=== PATIENT | female | born 1990 | race Caucasian/White ===

== ENCOUNTER 2018-01-10 15:27 | Inpatient (IN) | payer OTHER ==
[~2018-01-10] VITALS: Ht 170.2 cm; Wt 112.0 kg
[2018-01-10] MEDS ORDERED: LR 1,000 ML IV ONE (16:39)
[2018-01-10] MEDS ORDERED: CITRIC ACID/SODIUM CITRATE 30 ML UDC PO ONE (16:45)
[2018-01-10] MEDS ORDERED: METOCLOPRAMIDE HCL 10 MG/2 ML VIAL IVP ONE (16:45)
[2018-01-10] MEDS ORDERED: CEFAZOLIN 1 GM IVPB PREMIX 50 ML IV ONE (16:45)
[2018-01-10 17:04] LABS: HEMOGLOBIN 12.7 g/dL (12.0-16.0); MEAN CORPUSCULAR HEMOGLOBIN 28 pg (27-31); MEAN CORPUSCULAR HGB CONC 33 % (32-36); MEAN CORPUSCULAR VOLUME 84 fL (79.0-98.0); PLATELET COUNT (AUTO) 157 K/uL (130-430); RED BLOOD CELL COUNT(AUTO) 4.51 MIL/uL (4.2-6.2); RED CELL DISTRIBUTION WIDTH 13.7 % (9.0-15.0); WHITE BLOOD COUNT (AUTO) 10.3 K/uL (4.8-10.8)
[2018-01-10 17:11] LABS: BILIRUBIN,URINE NEGATIVE (NEGATIVE); BLOOD, URINE TRACE (NEGATIVE); CLARITY/URINE CLOUDY (CLEAR); COLOR,URINE YELLOW (YELLOW); GLUCOSE,URINE NEGATIVE (NEGATIVE); KETONES,URINE TRACE (NEGATIVE); LEUKOCYTE ESTERASE ,URINE NEGATIVE (NEGATIVE); NITRITE, URINE NEGATIVE (NEGATIVE); PROTEIN URINE 2+ (NEGATIVE); UROBILINOGEN,URINE 0.2 (0.2-1.0)
[2018-01-10 17:14] LABS: BACTERIA,URINE MODERATE /HPF (None Seen); RBC,URINE 0-3 /HPF (0-3); WBC,URINE 50-80 /HPF (0-3)
[2018-01-10 17:15] LABS: MUCUS,URINE 1+ /LPF (None Seen)
[2018-01-10 18:06] LABS: ATYPICAL LYMPHOCYTES % 0 % (0-0); BAND % (MANUAL) 0 % (0-6); BASOPHILS % (MANUAL) 0 % (0-2); EOSINOPHILS % (MANUAL) 1 % (0-7); LYMPHOCYTES % (MANUAL) 32 % (20-46); MONOCYTES % (MANUAL) 2 % (0-11)
[2018-01-10] MEDS ORDERED: OXYTOCIN/NORMAL SALINE 1,000 ML IV ONE (18:14)
[2018-01-10] MEDS ORDERED: BISACODYL 10 MG/SUPPOSITORY RC PRN (18:15)
[2018-01-10] MEDS ORDERED: LANOLIN 7 GM OINT. TP PRN (18:15)
[2018-01-10] MEDS ORDERED: HYDROcodone/ACETAMIN 5-325 MG TAB (NORCO/ VICODIN) PO PRN (18:15)
[2018-01-10] MEDS ORDERED: RHO(D) IMMUNE GLOBULIN/MALTOSE 1500 UNITS/1.3 ML (WINHRO) IM PRN (18:15)
[2018-01-10] MEDS ORDERED: DIPH-TET-PERTUS Vaccine 0.5 ML VIAL (ADACEL) I.M. PRN (18:15)
[2018-01-10] MEDS ORDERED: MEASLES,MUMPS&RUBELLA VACC/PF 12500 UNIT/0.5 ML VIAL SUBQ PRN (18:15)
[2018-01-10] MEDS ORDERED: ANUSOL 1 EA SUPP.RECT (PREPARATION H) RC PRN (18:15)
[2018-01-10] MEDS ORDERED: LR 1,000 ML IV SCH (18:53)
[2018-01-10] MEDS ORDERED: KETOROLAC TROMETHAMINE 60 MG/2 ML VIAL IM PRN (19:00)
[2018-01-10] MEDS ORDERED: ONDANSETRON HCL 4 MG/2 ML VIAL IVP PRN (19:00)
[2018-01-10] MEDS ORDERED: METOCLOPRAMIDE HCL 10 MG/2 ML VIAL IVP PRN (19:00)
[2018-01-10] MEDS ORDERED: MORPHINE SULFATE 10MG/10ML PF AMP SP SCH (19:00)
[2018-01-10] MEDS ORDERED: DIPHENHYDRAMINE INJ 50 MG/ML VIAL IM PRN (19:00)
[2018-01-10] MEDS ORDERED: NALOXONE HCL 0.4 MG/ML AMP (NARCAN) IVP PRN (19:00)
[2018-01-10 19:13] VITALS: BP_SYST 128
[2018-01-10] MEDS ORDERED: LR 1,000 ML IV.SOLN IV ONE (19:15)
[2018-01-10] MEDS ORDERED: BUPIVACAINE /DEX PF 0.75% SPINAL 2 ML AMP INJ ONE (19:15)
[2018-01-10] MEDS ORDERED: OXYTOCIN 10 UNIT/ML VIAL IV ONE (19:15)
[2018-01-10] MEDS ORDERED: MIDAZOLAM HCL 5 MG/ML VIAL (VERSED) IV ONE (19:15)
[2018-01-10] MEDS ORDERED: ONDANSETRON HCL 4 MG/2 ML VIAL IVP ONE (19:15)
[2018-01-10] MEDS ORDERED: MORPHINE SULFATE 10MG/10ML PF AMP EP ONE (19:15)
[2018-01-10] MEDS ORDERED: NS IRRIG SOLN 1000 ML IR ONE (19:15)
[2018-01-10] MEDS ORDERED: TEMAZEPAM 15 MG CAPSULE PO PRN (21:00)
[2018-01-10] MEDS: KETOROLAC TROMETHAMINE 30 MG VIAL IVP SCH (21:51)
[2018-01-11] MEDS: CEFAZOLIN 1 GM IVPB PREMIX 50 ML IV SCH ×3 (00:11→12:05)
[2018-01-11] MEDS: KETOROLAC TROMETHAMINE 30 MG VIAL IVP SCH ×3 (05:05→18:34)
[2018-01-11] MEDS: LR 1,000 ML IV SCH ×2 (06:33→14:58)
[2018-01-11 06:46] LABS: BASOPHILS % (AUTO) 0.2 % (0.0-2.0); EOSINOPHILS # (AUTO) 0.2 K/uL (0.0-0.4); EOSINOPHILS % (AUTO) 2.1 % (0.0-4.0); HEMATOCRIT 36.5 % (36-48); HEMOGLOBIN 11.9 g/dL (12.0-16.0); LYMPHOCYTES % (AUTO) 26.7 % (20.5-51.5); MEAN CORPUSCULAR HEMOGLOBIN 28 pg (27-31); MEAN CORPUSCULAR HGB CONC 33 % (32-36); MEAN CORPUSCULAR VOLUME 85 fL (79.0-98.0); MONOCYTES # (AUTO) 0.6 K/uL (0.0-1.0); MONOCYTES % (AUTO) 5.2 % (1.7-9.3); NEUTROPHILS # (AUTO) 7.4 K/uL (1.8-7.7); NEUTROPHILS % (AUTO) 65.8 % (40.0-70.0); PLATELET COUNT (AUTO) 118 K/uL (130-430); RED BLOOD CELL COUNT(AUTO) 4.28 MIL/uL (4.2-6.2); RED CELL DISTRIBUTION WIDTH 13.6 % (9.0-15.0); WHITE BLOOD COUNT (AUTO) 11.2 K/uL (4.8-10.8)
[2018-01-11] MEDS: metFORMIN HCL 500 MG TABLET PO SCH ×2 (13:59→18:41)
[2018-01-11] MEDS: OXYCODONE/ACETAMINOPHEN 5-325 TABLET PO PRN (14:23)
[2018-01-11] MEDS: DOCUSATE SODIUM 100 MG CAPSULE PO PRN (18:34)
[2018-01-11] MEDS: SIMETHICONE 80 MG TAB.CHEW PO PRN (18:34)
[2018-01-12] MEDS: IBUPROFEN 600 MG TABLET PO SCH ×4 (00:50→17:45)
[2018-01-12] MEDS: OXYCODONE/ACETAMINOPHEN 5-325 TABLET PO PRN ×3 (07:49→16:42)
[2018-01-12] MEDS: metFORMIN HCL 500 MG TABLET PO SCH ×3 (09:45→21:15)
[2018-01-12] MEDS: SIMETHICONE 80 MG TAB.CHEW PO PRN (09:47)
[2018-01-12] MEDS: DOCUSATE SODIUM 100 MG CAPSULE PO PRN ×2 (12:25→21:15)
[2018-01-13] MEDS: OXYCODONE/ACETAMINOPHEN 5-325 TABLET PO PRN ×2 (01:15→11:52)
[2018-01-13] MEDS: IBUPROFEN 600 MG TABLET PO SCH ×5 (01:15→23:40)
[2018-01-13] MEDS: DOCUSATE SODIUM 100 MG CAPSULE PO PRN (11:50)
[2018-01-13] MEDS: SENNOSIDES/DOCUSATE SODIUM 1 TAB TABLET(SENOKOT-S) PO PRN (11:50)
[2018-01-13] MEDS: SIMETHICONE 80 MG TAB.CHEW PO PRN (11:50)
[2018-01-13] MEDS: FIORCET PO PRN ×2 (16:00→23:40)
[2018-01-13] MEDS: FLUTICASONE PROPIONATE 50 mCg/SPRAY 16 GM NS SCH ×2 (16:00→23:40)
[2018-01-13] MEDS: metFORMIN HCL 500 MG TABLET PO SCH (17:57)
[2018-01-14] MEDS: IBUPROFEN 600 MG TABLET PO SCH ×3 (06:25→18:01)
[2018-01-14] MEDS: metFORMIN HCL 500 MG TABLET PO SCH ×2 (08:05→17:23)
[2018-01-14] MEDS: FLUTICASONE PROPIONATE 50 mCg/SPRAY 16 GM NS SCH (08:06)
[2018-01-14] MEDS: FIORCET PO PRN ×3 (08:14→17:21)
[2018-01-14] MEDS: SIMETHICONE 80 MG TAB.CHEW PO PRN (12:17)
[2018-01-14] MEDS: SENNOSIDES/DOCUSATE SODIUM 1 TAB TABLET(SENOKOT-S) PO PRN (12:17)
[2018-01-14] MEDS ORDERED: OXYC-130 PO (15:52)
[2018-01-14] MEDS ORDERED: IBUP-1969 PO (15:52)
[2018-01-14] MEDS ORDERED: FIORICET PO (15:52)
[2018-01-14] MEDS: OXYCODONE/ACETAMINOPHEN 5-325 TABLET PO PRN (17:22)
== END 2018-01-14 18:35 | disposition home or self-care (01) | DRG 765 ==
LOC: OBSVTOIN 15:27 → SPU 15:27
PROVIDERS: ADMIT Specialist; ATTEND Specialist
PROC: 10D00Z1 Extraction of Products of Conception, Low, Open Approach (ICD-10-PCS; principal; 2018-01-10 18:00)
DX: O32.1XX1 Maternal care for breech presentation, fetus 1 (principal); O41.03X2 Oligohydramnios, third trimester, fetus 2; E66.01 Morbid (severe) obesity due to excess calories; O41.03X1 Oligohydramnios, third trimester, fetus 1; Z37.2 Twins, both liveborn; O99.02 Anemia complicating childbirth; O24.429 Gestational diabetes mellitus in childbirth, unspecified control; O36.5931 Maternal care for other known or suspected poor fetal growth, third trimester, fetus 1; O99.214 Obesity complicating childbirth; O69.81X1 Labor and delivery complicated by cord around neck, without compression, fetus 1; O30.003 Twin pregnancy, unspecified number of placenta and unspecified number of amniotic sacs, third trimester; Z3A.35 35 weeks gestation of pregnancy; Z68.38 Body mass index [BMI] 38.0-38.9, adult
CPT/HCPCS: 36415; 81000-TC; 82962; 85007; 85025; 85027; 86592; 86886; 86900; 86901; 87086; 90715; 94760; J0690; J1885; J2250; J2274; J2405; J2590; J3490; J7120